=== PATIENT | female | born 1945 | race Hispanic/Latino ===

== ENCOUNTER 2023-08-12 03:41 | Observation (INO) | payer OTHER ==
[2023-08-12 05:25] LABS: #Eosinphils 0.1 thou/uL (0.0-0.7); #Monocytes 0.4 thou/uL (0.11-0.59); #Neutrophils 7.5 thou/uL (1.40-6.50); %Basophils 0.5 % (0.0-1.0); %Eosinophils 0.7 % (0.0-10.0); %Lymphocytes 7.3 % (21.0-51.0); %Monocytes 4.5 % (0.0-10.0); %Neutrophils 86.7 % (42.0-75.0); Hematocrit 29.7 % (36.0-47.0); Hemoglobin 10.2 g/dL (12.0-16.0); Mean Corpuscular HGB CONC 34.3 g/dL (32.0-36.0); Mean Corpuscular Hemoglobin 30.3 pg (27.0-31.0); Mean Corpuscular Volume 88.1 fl (78.0-98.0); Mean Platelet Volume 10.2 fL (7.4-10.4); Platelet Count 407 10x3/uL (130-400); RBC Distribution Width 13.3 % (11.5-14.5); Red Blood Cell (RBC) Count 3.37 mill/uL (4.20-5.40); White Blood Cell (WBC) Count 8.7 10x3/uL (4.8-10.8)
[2023-08-12 05:45] LABS: ALT (SGPT) 15 U/L (8-55); AST (SGOT) 24 U/L (5-34); Albumin 3.6 g/dL (3.4-4.8); Alkaline Phosphatase 113 U/L (40-110); Anion Gap 13 mmol/L (10-20); BUN (Urea Nitrogen) 41 mg/dL (9.8-20.1); Bilirubin, Total 0.3 mg/dL (0.2-1.2); Calc. Creatinine Clearance 0 mL/min (70-130); Calcium 8.6 mg/dL (7.8-10.44); Carbon Dioxide 24 mmol/L (23-31); Chloride 102 mmol/L (98-107); Estimated GFR 24; Globulin 3.5 g/dL (2.4-3.5); Glucose 84 mg/dL (83-110); Lipase 49 U/L (8-78); Magnesium 2.5 mg/dL (1.6-2.6); Potassium 3.5 mmol/L (3.5-5.1); Protein, Total 7.1 g/dL (5.8-8.1); Sodium 135 mmol/L (136-145)
[2023-08-12 05:47] LABS: Troponin I 0.013 ng/mL (< 0.028)
[2023-08-12] MEDS ORDERED: Sodium Chloride 0.9% 100 ML ONE (06:34)
[2023-08-12] MEDS ORDERED: Piperacillin/Tazobactam 3.375 GM VIAL ONE (06:34)
[2023-08-12 06:47] LABS: Bacteria/HPF None Seen HPF (None Seen); Bilirubin Negative (Negative); Blood, Urine Trace (Negative); CAUTI Indications for Culture Alt mental st,lethar; Clarity Clear (Clear); Glucose, Urine (Dipstick) Normal (Negative); Ketone, Urine Negative (Negative); Leukocyte Negative Leu/uL (Negative); Nitrite Negative (Negative); Protein, Urine (Dipstick) 100 mg/dL (Neg-Trace); RBC/HPF 0-3 HPF (0-3); Squamous Epithelial None Seen HPF (0-3); Urobilinogen Normal mg/dL (Less than 2); WBC/HPF 0-3 HPF (0-3); pH, Urine 6.5 (5.0-9.0)
[2023-08-12 06:50] LABS: Urine Culture Reflex No No
[2023-08-12 07:35] LABS: SARS-CoV-2 NAA Rapid Test Not Detected (NotDetected)
[2023-08-12] MEDS ORDERED: Acetaminophen 325 MG TAB PO PRN (07:54)
[2023-08-12] MEDS ORDERED: Dextrose 5% in Water 1,000 ML IV PRN (07:55)
[2023-08-12] MEDS ORDERED: Dextrose 50% Abboject 50 ML SYRINGE SLOW IVP PRN (07:55)
[2023-08-12] MEDS ORDERED: Glucagon 1 MG/ML KIT IM PRN (07:55)
[2023-08-12] MEDS ORDERED: Amlodipine 5 MG TAB ONE (09:11)
[2023-08-12] MEDS ORDERED: hydrALAZINE 25 MG TAB ONE ×2 (09:11→15:43)
[2023-08-12] MEDS ORDERED: Furosemide 40 MG TAB ONE (09:11)
[2023-08-12] MEDS ORDERED: Vancomycin 1 GM/200 ML (FROZEN) BAG ONE (09:12)
[2023-08-12] MEDS: D5 1/2 NS 500 ML IV SCH (09:28)
[2023-08-12] MEDS: Amlodipine 10 MG TAB PO SCH (09:29)
[2023-08-12] MEDS: hydrALAZINE 25 MG TAB PO SCH (09:29)
[2023-08-12] MEDS: Furosemide 20 MG TAB PO SCH (09:29)
[2023-08-12] MEDS: Memantine 5 MG TAB PO SCH (09:30)
[2023-08-12 17:11] VITALS: BMI 35.5
[2023-08-12] MEDS: HumaLOG 300 UNITS/3 ML VIAL SC PRN ×2 (17:53→21:48)
[2023-08-12] MEDS: Simvastatin 10 MG TAB PO SCH (21:28)
[2023-08-13] MEDS ORDERED: Vancomycin 1 GM in Premix 1 BAG IVPB SCH ×2 (04:45→05:00)
[2023-08-13 05:14] LABS: Anion Gap 10 mmol/L (10-20); BUN (Urea Nitrogen) 46 mg/dL (9.8-20.1); Calc. Creatinine Clearance 17 mL/min (70-130); Calcium 8.6 mg/dL (7.8-10.44); Carbon Dioxide 26 mmol/L (23-31); Chloride 103 mmol/L (98-107); Estimated GFR 23; Potassium 3.6 mmol/L (3.5-5.1); Sodium 135 mmol/L (136-145)
[2023-08-13 05:17] LABS: Glucose 42 mg/dL (83-110)
[2023-08-13 05:22] LABS: Vancomycin, Random 14.6 ug/mL (See Comment)
[2023-08-13] MEDS: Vancomycin HCl 500 MG in Sodium Chloride 0.9% 100 ML IV SCH (05:59)
[2023-08-13 08:46] LABS: Hemoglobin A1c 11.2 % (4.0-6.0)
[2023-08-13 16:56] VITALS: BP 128/70; TEMP 97.9
== END 2023-08-13 17:25 | disposition home or self-care (01) ==
LOC: ERS 03:41 → ERHOLD 06:43 → INTOOBSV 06:43 → 2NO 16:55
PROVIDERS: ADMIT Student in an Organized Health Care Education/Training Program; ATTEND Hospitalist
DX: G93.41 Metabolic encephalopathy (principal); E11.22 Type 2 diabetes mellitus with diabetic chronic kidney disease; I12.9 Hypertensive chronic kidney disease with stage 1 through stage 4 chronic kidney disease, or unspecified chronic kidney disease; N18.4 Chronic kidney disease, stage 4 (severe); E11.649 Type 2 diabetes mellitus with hypoglycemia without coma; F03.90 Unspecified dementia, unspecified severity, without behavioral disturbance, psychotic disturbance, mood disturbance, and anxiety; E78.5 Hyperlipidemia, unspecified; K21.9 Gastro-esophageal reflux disease without esophagitis; Z79.84 Long term (current) use of oral hypoglycemic drugs; Z79.4 Long term (current) use of insulin; Z79.899 Other long term (current) drug therapy
CPT/HCPCS: 70450; 71045; 80048; 80053; 80202; 81001; 82962 ×2; 83036; 83605; 83690; 83735; 83880; 84484; 85025; 87040; 87086; 87149 ×2; 87804 ×2; 93005; 96376; G0378 ×3; J3370; U0002; 36415; 36416; J1815; J2543; J3490; J7042

== ENCOUNTER 2024-06-08 04:08 | Inpatient (IN) | payer OTHER ==
[2024-06-08 04:43] LABS: #Basophils 0.08 10x3/uL (0.0-0.2); %Eosinophils 1.4 % (0.0-10.0); %Monocytes 6.4 % (0.0-10.0); %Neutrophils 70.5 % (42.0-75.0); Hematocrit 31.2 % (36.0-47.0); Hemoglobin 10.8 g/dL (12.0-16.0); Mean Corpuscular HGB CONC 34.6 g/dL (32.0-36.0); Mean Corpuscular Hemoglobin 29.2 pg (27.0-31.0); Mean Corpuscular Volume 84.3 fL (78.0-98.0); Mean Platelet Volume 9.6 fL (7.4-10.4); Platelet Count 355 10x3/uL (130-400); RBC Distribution Width 14.5 % (11.5-14.5)
[2024-06-08 05:00] LABS: ALT (SGPT) 12 U/L (8-55); AST (SGOT) 22 U/L (5-34); Albumin 2.8 g/dL (3.4-4.8); Alkaline Phosphatase 145 U/L (40-110); Anion Gap 17 mmol/L (10-20); BUN (Urea Nitrogen) 43 mg/dL (9.8-20.1); Bilirubin, Total 0.3 mg/dL (0.2-1.2); Calc. Creatinine Clearance 0 mL/min (70-130); Calcium 8.1 mg/dL (7.8-10.44); Carbon Dioxide 18 mmol/L (23-31); Chloride 103 mmol/L (98-107); Estimated GFR 10; Glucose 114 mg/dL (83-110); Protein, Total 6.8 g/dL (5.8-8.1); Sodium 135 mmol/L (136-145)
[2024-06-08 05:05] LABS: Troponin I 0.018 ng/mL (< 0.028)
[2024-06-08 05:20] LABS: Bacteria/HPF None Seen HPF (None Seen); Bilirubin Negative (Negative); Blood, Urine 1+ (Negative); CAUTI Indications for Culture Alt mental st,lethar; Clarity Clear (Clear); Glucose, Urine (Dipstick) 100 mg/dL (Negative); Ketone, Urine Negative (Negative); Leukocyte 25 Leu/uL (Negative); Nitrite Negative (Negative); Protein, Urine (Dipstick) 300 mg/dL (Neg-Trace); RBC/HPF 0-3 HPF (0-3); Specific Gravity, Urine 1.012 (1.002-1.036); Squamous Epithelial 0-3 HPF (0-3); Urobilinogen Normal mg/dL (Less than 2)
[2024-06-08 05:22] LABS: Urine Culture Reflex Yes Yes
[2024-06-08 05:28] LABS: Amphetamine Not Detected (NotDetected); Barbiturates Screen Not Detected (NotDetected); Benzodiazepine Screen Not Detected (NotDetected); Cocaine Metabolite Screen Not Detected (NotDetected); Methadone Not Detected (NotDetected); Methamphetamine Not Detected (NotDetected); Opiate Screen Detected (NotDetected); Oxycodone Screen Not Detected (NotDetected); Phencyclidine (PCP) Not Detected (NotDetected); THC/Cannabinoid Screen Not Detected (NotDetected); Tricyclic Screen Not Detected (NotDetected)
[2024-06-08] MEDS ORDERED: Sodium Chloride 0.9% 100 ML ONE (06:10)
[2024-06-08] MEDS ORDERED: Cefepime 2 GM VIAL ONE (06:10)
[2024-06-08 06:37] LABS: Acetaminophen Less than 10 mcg/mL (Less than 10); Alcohol Less than 10.0 mg/dL (Less than 10); Salicylate Less than 8.0 mg/dL (Less than 8.0)
[2024-06-08] MEDS ORDERED: Dextrose 50% Abboject 50 ML SYRINGE SLOW IVP PRN (08:43)
[2024-06-08] MEDS ORDERED: Glucagon 1 MG/ML KIT IM PRN (08:43)
[2024-06-08] MEDS: Heparin 5,000 UNITS/ML VIAL SC SCH (09:27)
[2024-06-08 11:45] VITALS: BMI 36.0
[2024-06-08] MEDS: Dextrose 5% in Water 1,000 ML IV PRN (11:45)
[2024-06-08] MEDS: hydrALAZINE 20 MG/ML VIAL SLOW IVP PRN (11:57)
[2024-06-08 12:19] LABS: Glucose 108 mg/dL (83-110)
[2024-06-08] MEDS: hydrALAZINE 25 MG TAB PO SCH (15:07)
[2024-06-08] MEDS: Electrolyte Replacement Protocol 1 EACH FS ONE (16:56)
[2024-06-08] MEDS: Simvastatin 10 MG TAB PO SCH (21:07)
[2024-06-08] MEDS: Memantine 5 MG TAB PO SCH (21:07)
[2024-06-08] MEDS ORDERED: Ondansetron ODT 4 MG TAB PO PRN (22:53)
[2024-06-08] MEDS: Senokot S 8.6-50 MG TAB PO SCH (22:59)
[2024-06-08] MEDS: Ondansetron PF 4 MG/2 ML Vial ONE (23:00)
[2024-06-08] MEDS: Insulin Lispro 100 UNIT/ML 10 ML VIAL SC PRN (23:20)
[2024-06-09] MEDS: cefTRIAXone\\ROCEPHIN 1 GM in Sodium Chloride 0.9% 100 ML IVPB SCH (06:30)
[2024-06-09] MEDS: Senokot S 8.6-50 MG TAB PO SCH (08:13)
[2024-06-09] MEDS: Amlodipine 5 MG TAB PO SCH (08:13)
[2024-06-09] MEDS: Calcitriol 0.25 MCG CAP PO SCH (08:13)
[2024-06-09] MEDS: Phenazopyridine HCl 100 MG TAB PO SCH (12:00)
[2024-06-09] MEDS: Acetaminophen 500 MG TAB PO PRN (15:08)
[2024-06-09] MEDS: Sodium Chloride 0.9% 1,000 ML IV SCH (17:17)
[2024-06-09] MEDS: hydrALAZINE 25 MG TAB PO SCH (20:44)
[2024-06-10 05:37] LABS: #Basophils 0.06 10x3/uL (0.0-0.2); %Basophils 1.1 % (0.0-1.0); %Lymphocytes 35.6 % (21.0-51.0); %Monocytes 11.9 % (0.0-10.0); Hemoglobin 8.6 g/dL (12.0-16.0); Mean Corpuscular HGB CONC 33.1 g/dL (32.0-36.0); Mean Corpuscular Hemoglobin 28.8 pg (27.0-31.0); Mean Platelet Volume 11.1 fL (7.4-10.4); Platelet Count 308 10x3/uL (130-400); RBC Distribution Width 14.9 % (11.5-14.5); Red Blood Cell (RBC) Count 2.99 mill/uL (4.20-5.40)
[2024-06-10 06:23] LABS: Anion Gap 14 mmol/L (10-20); BUN (Urea Nitrogen) 45 mg/dL (9.8-20.1); Calc. Creatinine Clearance 9 mL/min (70-130); Calcium 7.3 mg/dL (7.8-10.44); Carbon Dioxide 17 mmol/L (23-31); Chloride 104 mmol/L (98-107); Estimated GFR 10; Glucose 277 mg/dL (83-110); Potassium 3.7 mmol/L (3.5-5.1); Sodium 131 mmol/L (136-145)
[2024-06-10] MEDS: Albumin 25% 25 GM (100 mL) BOT IVPB SCH (12:30)
[2024-06-10] MEDS: Ondansetron PF 4 MG/2 ML Vial IVP PRN (12:42)
[2024-06-10] MEDS: hydrALAZINE 25 MG TAB PO SCH (14:57)
[2024-06-10] MEDS: EPOETIN ALFA-EPBX (ESRD) 10,000 UNITS/ML VIAL SC SCH (14:57)
[2024-06-10] MEDS: Pantoprazole DR 40 MG TAB PO SCH (18:58)
[2024-06-11 05:23] LABS: Phosphorus 5.1 mg/dL (2.3-4.7)
[2024-06-11 05:28] LABS: #Basophils 0.04 10x3/uL (0.0-0.2); %Basophils 0.7 % (0.0-1.0); %Eosinophils 1.5 % (0.0-10.0); %Lymphocytes 19.8 % (21.0-51.0); %Monocytes 8.6 % (0.0-10.0); %Neutrophils 68.2 % (42.0-75.0); Hematocrit 25.4 % (36.0-47.0); Hemoglobin 8.4 g/dL (12.0-16.0); Mean Corpuscular HGB CONC 33.1 g/dL (32.0-36.0); Mean Corpuscular Hemoglobin 28.9 pg (27.0-31.0); Mean Corpuscular Volume 87.3 fL (78.0-98.0); Mean Platelet Volume 10.6 fL (7.4-10.4); Platelet Count 298 10x3/uL (130-400); Red Blood Cell (RBC) Count 2.91 mill/uL (4.20-5.40)
[2024-06-11 05:31] LABS: Anion Gap 16 mmol/L (10-20); BUN (Urea Nitrogen) 44 mg/dL (9.8-20.1); Calc. Creatinine Clearance 9 mL/min (70-130); Calcium 7.8 mg/dL (7.8-10.44); Carbon Dioxide 15 mmol/L (23-31); Chloride 105 mmol/L (98-107); Estimated GFR 10; Glucose 196 mg/dL (83-110); Potassium 3.4 mmol/L (3.5-5.1); Sodium 133 mmol/L (136-145)
[2024-06-11 07:14] VITALS: TEMP 97.6
[2024-06-11] MEDS: Pantoprazole DR 40 MG TAB PO SCH (08:16)
[2024-06-11] MEDS: Ferrous Sulfate 325 MG TAB PO SCH (08:17)
[2024-06-11] MEDS: Potassium Chloride 20 MEQ TAB PO SCH (08:52)
[2024-06-11] MEDS: Sevelamer Carbonate 800 MG TAB PO SCH (12:24)
[2024-06-11 12:45] VITALS: BP 150/77
== END 2024-06-11 13:15 | disposition home or self-care (01) | DRG 689 ==
LOC: ERS 04:08 → SURG B 07:21 → OBSVTOIN 06-09 10:26
PROVIDERS: ADMIT Internal Medicine; ATTEND Internal Medicine
DX: N39.0 Urinary tract infection, site not specified (principal); G93.41 Metabolic encephalopathy; N18.5 Chronic kidney disease, stage 5; N17.9 Acute kidney failure, unspecified; N25.81 Secondary hyperparathyroidism of renal origin; I12.0 Hypertensive chronic kidney disease with stage 5 chronic kidney disease or end stage renal disease; Z66 Do not resuscitate; E11.22 Type 2 diabetes mellitus with diabetic chronic kidney disease; F03.90 Unspecified dementia, unspecified severity, without behavioral disturbance, psychotic disturbance, mood disturbance, and anxiety; E78.5 Hyperlipidemia, unspecified; K21.9 Gastro-esophageal reflux disease without esophagitis; E87.6 Hypokalemia; E11.65 Type 2 diabetes mellitus with hyperglycemia; I16.0 Hypertensive urgency; E11.649 Type 2 diabetes mellitus with hypoglycemia without coma; D64.9 Anemia, unspecified; Z79.899 Other long term (current) drug therapy; Z79.4 Long term (current) use of insulin
CPT/HCPCS: 36415; 36416; 51701; 70450; 71045; 80048; 80053; 80306; 80307; 81001; 83605; 83880; 83970; 84100; 84443; 84484; 85025; 87040; 87086; 87428; 93005; 94760; 96374; 96375; G0378; J0360; J0692; J0696; J1644; J1815; J2405; J7030; J7070; P9047; Q5105